=== PATIENT | male | born 1960 | race Caucasian/White ===

== ENCOUNTER 2017-08-13 09:22 | Day surgery (SDC) | payer BC ==
[2017-08-13] MEDS ORDERED: MIDAZOLAM HCL 2MG/2ML VIAL IV ONE (09:23)
[2017-08-13] MEDS ORDERED: PROPOFOL 10 MG/ML VIAL IV ONE (09:23)
[2017-08-13] MEDS ORDERED: LIDOCAINE 2% MDV (20MG/ML) 20ML VIAL IV ONE (09:23)
--- NOTE | 2017-08-14 13:10 | Operative Note ---
DATE OF SURGERY: 08/13/2017 OPERATION: COLONOSCOPY to the cecum with biopsy. INDICATION: One episode of rectal bleeding 3 months ago, unexplained 20-pound weight loss. This is the patient's first colonoscopy. ANESTHESIA: Intravenous sedation was administered by the department of anesthesiology and included Diprivan titrated to effect. PROCEDURE: Following informed consent from this alert individual including a discussion of the risks and benefits of the procedure and an opportunity for the patient to ask questions, the patient was in the left lateral decubitus position. A digital rectal examination was performed. No abnormalities were noted. Following this, the Olympus [id number] video colonoscope was inserted into the rectum without resistance. The rectal mucosa had a normal appearance initially with normal folds and distensibility. The colonoscope was advanced up through the bowel to the level of the cecum without much difficulty. Some abdominal pressure support was applied by the nursing staff to facilitate reaching the base of the cecum. Throughout the bowel the mucosa appeared normal, the folds were normal, and the bowel was fairly well distensible. A few scattered diverticula were noted in the sigmoid region. The cecum was well defined by noting the appendiceal orifice and ileocecal valve. Retroflexion was accomplished following air insufflation and failed to demonstrate any changes from the level of the cecum. The colon preparation as good. From the base of the cecum, the colonoscope was then withdrawn. No additional abnormalities were noted. Again a few scattered diverticula were seen in the sigmoid region. Upon withdrawal into the distal rectum, there was some mild focal erythema and edema noted, and biopsies from the distal rectum were taken. Retroflexion in the rectum failed to demonstrate any additional changes. The endoscope was straightened and removed. The patient tolerated the procedure well and was returned to the recovery area in stable condition. IMPRESSION: 1. Mild sigmoid diverticulosis. 2. Very mild focal erythema and edema in the rectum. Biopsies taken to rule out proctitis. RECOMMENDATIONS: Further recommendations will be forthcoming pending results of biopsy obtained today. Followup will be with Dr. Gibson Soto. As always, thank you for allowing me to participate in the care of your patient. CC: Gibson Soto, DO [facility]
== END 2017-08-13 11:28 | disposition home or self-care (01) ==
LOC: HOP 09:22
PROVIDERS: ATTEND Internal Medicine Gastroenterology
DX: K62.89 Other specified diseases of anus and rectum (principal); R63.4 Abnormal weight loss; K57.30 Diverticulosis of large intestine without perforation or abscess without bleeding; E11.9 Type 2 diabetes mellitus without complications; Z79.84 Long term (current) use of oral hypoglycemic drugs; I10 Essential (primary) hypertension